=== PATIENT | male | born 1985 | race Two or more races ===

== ENCOUNTER → 2016-12-12 | Outpatient (CLI) | payer OTHER ==
--- NOTE | 2016-12-12 19:03 | REP ---
LEFT 3RD DIGIT: Four views of the left 3rd digit are performed. There is a nondisplaced fracture at the anterior base of the middle phalanx. No other acute fracture or dislocation is seen. There is a associated soft-tissue swelling. IMPRESSION: Nondisplaced fracture anterior base of the middle phalanx. Signed by Ceferino Soria MD 12/12/2016 08:17 P
== END ==
LOC: M LRY 18:08
PROVIDERS: ATTEND Physician Assistant
DX: S69.92XA Unspecified injury of left wrist, hand and finger(s), initial encounter (principal); X58.XXXA Exposure to other specified factors, initial encounter; Y92.89 Other specified places as the place of occurrence of the external cause

== ENCOUNTER 2017-10-25 08:18 | Emergency (ER) | payer OTHER ==
[~2017-10-25] VITALS: Ht 182.9 cm; Wt 84.1 kg
[2017-10-25 08:19] VITALS: BP 138/86
[2017-10-25] MEDS ORDERED: FLON1SPR (08:34)
[2017-10-25] MEDS ORDERED: IBUP80TA PO (08:34)
[2017-10-25] MEDS ORDERED: MUCI60TA7 PO (08:34)
--- NOTE | 2017-10-25 09:02 | REP ---
Clinical: Trauma. Technique: AP, lateral, bilateral oblique views of the left fifth toe. Findings: There is an oblique fracture through the proximal phalanx without significant displacement. Overlying soft tissue swelling noted. No subcutaneous emphysema or radiodense foreign body. Impression: Oblique fracture of the fifth toe proximal phalanx. Signed by Wiliam Rankin MD 10/25/2017 08:54 A
[2017-10-25] MEDS ORDERED: NORCO, ANEXSIA 5/325MG TABLET (HYDROcodone/ACETAMINOPHEN) PO ONE (09:15)
[2017-10-25] MEDS ORDERED: NORCOTAB PO (09:22)
== END 2017-10-25 09:34 | disposition home or self-care (01) ==
LOC: M ED 08:18
DX: S92.515A Nondisplaced fracture of proximal phalanx of left lesser toe(s), initial encounter for closed fracture (principal); W22.8XXA Striking against or struck by other objects, initial encounter; Y92.099 Unspecified place in other non-institutional residence as the place of occurrence of the external cause; Y93.01 Activity, walking, marching and hiking; Y99.9 Unspecified external cause status